=== PATIENT | female | born 1990 | race Caucasian/White ===

== ENCOUNTER 2017-02-05 02:07 | Emergency (ER) | payer MEDICAID ==
[2017-02-05 02:14] VITALS: BP 140/94
--- NOTE | 2017-02-05 02:33 | EDM.PDOC ---
ED HPI GENERAL MEDICAL PROBLEM - General Chief Complaint: Chest Pain Stated Complaint: CHEST PAIN Time Seen by Provider: 02/05/17 02:21 Source of Information: Reports: Patient History Limitations: Reports: No Limitations - History of Present Illness INITIAL COMMENTS - FREE TEXT/NARRATIVE: The patient presents with mid chest pain that comes and goes for the past few days to a week. It is a sharp pain. It is made worse with exertion and deep breathing at times. She has no fever or chills. She does have a cough. She has shortness of breath at times with it. She does smoke and she did use meth a few days ago. She has no vomiting but she does have some nausea with lack of appetite. She was recently released from custodial. Onset: Gradual Duration: Week(s): (1) Location: Reports: Chest Quality: Reports: Sharp Severity: Moderate Improves with: Reports: Rest Worsens with: Reports: Breathing, Movement Associated Symptoms: Reports: Chest Pain, Cough, Nausea/Vomiting, Shortness of Breath. Denies: Fever/Chills, Headaches Middle Chest Pain Score (Numeric/FACES): 5 - Related Data Allergies Allergy/AdvReac Type Severity Reaction Status Date / Time No Known Allergies Allergy Verified 02/05/17 02:14 Home Meds: Home Meds Multivitamin [Multivitamins] 1 tab PO DAILY 02/05/17 [History] Past Medical History - Past Health History Medical/Surgical History: Denies Medical/Surgical History - Past Surgical History HEENT Surgical History: Reports: Other (See Below) Other HEENT Surgeries/Procedures: wisdom teeth removal Social & Family History - Tobacco Use Smoking Status *Q: Current Every Day Smoker Years of Tobacco use: 7 Packs/Tins Daily: 0.2 - Caffeine Use Caffeine Use: Reports: None - Alcohol Use Days Per Week of Alcohol Use: 7 Number of Drinks Per Day: 2 Total Drinks Per Week: 14 - Recreational Drug Use Recreational Drug Use: Yes Drug Use in Last 12 Months: Yes Recreational Drug Type: Reports: Marijuana/Hashish, Methamphetamine Recreational Drug Use Frequency: Weekly Recreational Drug Last Use: 3 days ED ROS GENERAL - Review of Systems Review Of Systems: See Below Constitutional: Reports: No Symptoms HEENT: Reports: No Symptoms Respiratory: Reports: Shortness of Breath, Cough Cardiovascular: Reports: Chest Pain Endocrine: Reports: No Symptoms GI/Abdominal: Reports: No Symptoms : Reports: No Symptoms Musculoskeletal: Reports: No Symptoms ED EXAM, GENERAL - Physical Exam Exam: See Below Exam Limited By: No Limitations General Appearance: Alert, No Apparent Distress Ears: Normal External Exam Nose: Normal Inspection Head: Atraumatic, Normocephalic Neck: Normal Inspection Respiratory/Chest: No Respiratory Distress, Lungs Clear, Normal Breath Sounds Cardiovascular: Regular Rate, Rhythm, No Edema, No Murmur GI/Abdominal: Soft, Non-Tender, No Organomegaly, No Mass Back Exam: Normal Inspection Extremities: Normal Inspection Neurological: Alert, Oriented, No Motor/Sensory Deficits EKG INTERPRETATION EKG Date: 02/05/17 Time: 02:17 Rhythm: Other (sinus tachycardia) Rate (Beats/Min): 100 [place]ella: Normal P-Wave: Present QRS: Normal ST-T: Normal QT: Normal Course - Vital Signs Last Recorded V/S: Last Vital Signs Temp 98 F 02/05/17 02:11 Pulse 100 02/05/17 02:11 Resp 16 02/05/17 02:11 BP 140/94 H 02/05/17 02:11 Pulse Ox 100 02/05/17 02:11 - Orders/Labs/Meds Orders: Active Orders 24 hr Category Date Time Status Cardiac Monitoring [RC] . DIRECTED Care 02/05/17 02:27 Active EKG 12 Lead [EKG Documentation Completion] [RC] STAT Care 02/05/17 02:21 Active Chest 2V [CR] Stat Exams 02/05/17 02:27 Taken Labs: Laboratory Tests 02/05/17 02/05/17 02/05/17 Range/Units 02:38 02:38 02:38 WBC 5.67 (3.98-10.04) K/mm3 RBC 4.40 (3.98-5.22) M/mm3 Hgb 13.4 (11.2-15.7) gm/L Hct 38.9 (34.1-44.9) % MCV 88.4 (79.4-94.8) fl MCH 30.5 (25.6-32.2) pg MCHC 34.4 (32.2-35.5) g/dl RDW Std Deviation 41.6 (36.4-46.3) fL Plt Count 236 (182-369) K/mm3 MPV 10.5 (9.4-12.3) fl Neut % (Auto) 63.3 (34.0-71.1) % Lymph % (Auto) 26.8 (19.3-51.7) % [place] % (Auto) 9.0 (4.7-12.5) % Eos % (Auto) 0.7 (0.7-5.8) Baso % (Auto) 0.2 (0.1-1.2) % Neut # (Auto) 3.59 (1.56-6.13) K/mm3 Lymph # (Auto) 1.52 (1.18-3.74) K/mm3 [place] # (Auto) 0.51 H (0.24-0.36) K/mm3 Eos # (Auto) 0.04 (0.04-0.36) K/mm3 Baso # (Auto) 0.01 (0.01-0.08) K/mm3 D-Dimer, Quantitative 0.25 (0.19-0.59) mg/L Sodium 139 (136-145) mEq/L Potassium 3.2 L (3.5-5.1) mEq/L Chloride 100 (98-107) mEq/L Carbon Dioxide 27 (21-32) mEq/L Anion Gap 15.2 H (5-15) BUN 8 (7-18) mg/dL Creatinine 0.9 (0.55-1.02) mg/dL Est Cr Clr Drug Dosing 74.92 mL/min Estimated GFR (MDRD) > 60 (>60) mL/min BUN/Creatinine Ratio 8.9 L (14-18) Glucose 105 (74-106) mg/dL Calcium 9.3 (8.5-10.1) mg/dL Total Bilirubin 0.6 (0.2-1.0) mg/dL AST 30 (15-37) U/L ALT 29 (14-59) U/L Alkaline Phosphatase 71 (46-116) U/L Troponin I < 0.017 (0.00-0.056) ng/mL Total Protein 7.2 (6.4-8.2) g/dl Albumin 4.3 (3.4-5.0) g/dl Globulin 2.9 gm/dL Albumin/Globulin Ratio 1.5 (1-2) - Re-Assessments/Exams Free Text/Narrative Re-Assessment/Exam: 02/05/17 02:33 I ordered an EKG, CXR and labs. 02/05/17 03:26 Her EKG shows a NSR with no acute changes. Her CXR is negative for pneumonia or pneumthorax. Her CBC and CMP look good. Her troponin and D-dimer were negative. She appears to have pleurisy possibly from smoking cigarettes or the meth she did a few days ago. Departure - Departure Time of Disposition: 03:30 Disposition: Home, Self-Care 01 Condition: Good Clinical Impression: Pleurisy Referrals: Sulma Sanchez PA-C [Physician Application Systems Architect] - 1 Week Forms: ED Department Discharge Additional Instructions: Stop smoking and stop doing methamphetamines. Both of these are causing your chest pain. Take motrin or aleve for the pain. Follow up with Sulma Sanchez in 2 weeks if you are not better. - My Orders Last 24 Hours: My Active Orders 02/05/17 02:21 EKG 12 Lead [EKG Documentation Completion] [RC] STAT 02/05/17 02:27 Cardiac Monitoring [RC] . DIRECTED Chest 2V [CR] Stat - Assessment/Plan Last 24 Hours: My Active Orders 02/05/17 02:21 EKG 12 Lead [EKG Documentation Completion] [RC] STAT 02/05/17 02:27 Cardiac Monitoring [RC] . DIRECTED Chest 2V [CR] Stat
--- NOTE | 2017-02-05 17:54 | CR ---
Chest: Two views of the chest were obtained. Comparison: Previous chest x-ray of 09/04/10. Heart size and mediastinum are within normal limits. Lungs are clear with no acute infiltrates. Bony structures are within normal limits. Impression: 1. Nothing acute is appreciated on two-view chest x-ray. Diagnostic code #1
== END 2017-02-05 03:37 | disposition home or self-care (01) ==
LOC: JD.ED 02:07
DX: R09.1 Pleurisy (principal); F17.210 Nicotine dependence, cigarettes, uncomplicated
CPT/HCPCS: 36415; 71020; 71020-26; 80053; 84484; 85025; 85379; 93005; 99284; 99284-25

== ENCOUNTER 2018-09-27 08:15 | Emergency (ER) | payer SELFPAY ==
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
[2018-09-27] MEDS ORDERED: LORazepam 1 MG Tab PO ONE (09:18)
[2018-09-27 09:34] LABS: ACETAMINOPHEN 0 ug/mL (10-30)
[2018-09-28 00:01] VITALS: BP 96/63
== END 2018-09-28 09:50 ==
LOC: JD.ED 08:15
DX: F15.20 Other stimulant dependence, uncomplicated (principal); F17.210 Nicotine dependence, cigarettes, uncomplicated
CPT/HCPCS: 36415; 80053; 80306; 81025; 84443; 85007; 85027; 93005; 99285; A9270; G0480; 93010

== ENCOUNTER 2020-10-22 03:42 | Emergency (ER) | payer SELFPAY ==
[2020-10-22] MEDS ORDERED: Adenosine 12 MG/4 ML SDV ONE (03:50)
[2020-10-22] MEDS ORDERED: Adenosine 6 MG/2 ML SDV ONE (03:50)
[2020-10-22] MEDS ORDERED: Sodium Chloride 0.9% 10 ML Syringe FLUSH PRN (03:56)
[2020-10-22] MEDS ORDERED: Ondansetron 4 MG/2 ML SDV IVPUSH ONE (03:59)
[2020-10-22 04:00] VITALS: BP 103/85; PULSE 192
[2020-10-22] MEDS ORDERED: Lactated Ringers 1,000 ML IV SCH (04:00)
[2020-10-22] MEDS ORDERED: Adenosine 6 MG/2 ML SDV IVPUSH ONE ×2 (04:01)
[2020-10-22] MEDS ORDERED: Adenosine 12 MG/4 ML SDV IVPUSH ONE (04:03)
--- NOTE | 2020-10-22 04:06 | EDM.PDOCBH ---
ED HPI GENERAL MEDICAL PROBLEM - General Chief Complaint: Drug or Alcohol Abuse Stated Complaint: [facility] Time Seen by Provider: 10/22/20 03:51 Source of Information: Reports: Patient History Limitations: Reports: No Limitations - History of Present Illness INITIAL COMMENTS - FREE TEXT/NARRATIVE: The patient presents with palpitations. She said she took to many caffeine pills last night. She took them at 10pm to help stay awake to study. She is in courses in [place]. She noticed her heart was racing. She denies taking anything else. She has no fever, chills, cough, or chest pain. She has some shortness of breath. She has nausea but no vomiting. She says this has not happened before. She denies any past medical history. Onset: Gradual Duration: Hour(s): Severity: Moderate Improves with: Reports: None Worsens with: Reports: None Associated Symptoms: Reports: Nausea/Vomiting, Shortness of Breath. Denies: Chest Pain, Cough, Fever/Chills, Headaches Abdomen Pain Score (Numeric/FACES): 10 - Related Data Allergies Allergy/AdvReac Type Severity Reaction Status Date / Time No Known Allergies Allergy Verified 10/22/20 03:43 Home Meds: Home Meds Buprenorphine HCl/Naloxone HCl [Suboxone 4 mg-1 mg Sl Film] 1 each SL TID 09/27/18 [History] Potassium Chloride 20 meq PO DAILY #30 tablet.er 10/22/20 [Rx] Past Medical History - Past Health History Medical/Surgical History: Denies Medical/Surgical History Cardiovascular History: Reports: None Respiratory History: Reports: None Gastrointestinal History: Reports: None Genitourinary History: Reports: None 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 Apparently her partner both been diagnosed with 60 transmitted disorders several times in the past and treated. "ping pong ball" effect still seems to be occurring Musculoskeletal History: Reports: None Neurological History: Reports: None Psychiatric History: Reports: Addiction (alcohol, methamphetamine, heroin), Depression (untreated) Immunologic History: Reports: None Oncologic (Cancer) History: Reports: None Dermatologic History: Reports: None - Infectious Disease History Infectious Disease History: Reports: None - Past Surgical History HEENT Surgical History: Reports: Oral Surgery (wisdom teeth extraction) Social & Family History - Family History Family Medical History: No Pertinent Family History - Caffeine Use Caffeine Use: Reports: Coffee - Living Situation & Occupation Living situation: Reports: Single, Other (Homeless) Occupation: Unemployed ED ROS GENERAL - Review of Systems Review Of Systems: See Below Constitutional: Reports: No Symptoms HEENT: Reports: No Symptoms Respiratory: Reports: Shortness of Breath. Denies: Cough Cardiovascular: Reports: Palpitations. Denies: Chest Pain Endocrine: Reports: No Symptoms GI/Abdominal: Reports: Nausea. Denies: Abdominal Pain, Vomiting : Reports: No Symptoms Musculoskeletal: Reports: No Symptoms Skin: Reports: No Symptoms ED EXAM, BEHAVIORAL HEALTH - Physical Exam Exam: See Below Exam Limited By: No Limitations General Appearance: Alert, No Apparent Distress Ears: Normal External Exam Nose: Normal Inspection Head: Atraumatic, Normocephalic Neck: Normal Inspection Respiratory/Chest: No Respiratory Distress, Lungs Clear, Normal Breath Sounds Cardiovascular: No Edema, No Murmur, Tachycardia GI/Abdominal: Soft, Non-Tender, No Organomegaly, No Mass Back Exam: Normal Inspection Extremities: Normal Inspection Neurological: Alert, No Motor/Sensory Deficits, Oriented x 3 #1 Interpretation EKG Date: 10/22/20 Time: 03:46 Rhythm: Other (SVT) Rate (Beats/Min): 187 [place]: Normal P-Wave: Present QRS: Normal ST-T: Normal QT: Normal COURSE, BEHAVIORAL HEALTH COMP - Course Vital Signs: Last Vital Signs Temp 97.6 F 10/22/20 03:43 Pulse 192 H 10/22/20 03:43 Resp 18 10/22/20 03:43 BP 103/85 10/22/20 03:43 Pulse Ox 98 10/22/20 03:43 Orders, Labs, Meds: Active Orders 24 hr Category Date Time Status Cardiac Monitoring [RC] . DIRECTED Care 10/22/20 03:51 Active EKG Documentation Completion [RC] STAT Care 10/22/20 03:58 Active Peripheral IV Care [RC] . DIRECTED Care 10/22/20 03:58 Active Lactated Ringers [Ringers, Lactated] 1,000 ml Med 10/22/20 04:00 Active IV .BOLUS Sodium Chloride 0.9% [Saline Flush] Med 10/22/20 03:56 Active 10 ml FLUSH ASDIRECTED PRN Peripheral IV Insertion Adult [OM.PC] Stat Oth 10/22/20 03:56 Ordered Medication Orders Lactated Ringer's (Ringers, Lactated) 1,000 mls @ 500 mls/hr IV .BOLUS MARJORIE Last Admin: 10/22/20 04:03 Dose: 500 mls/hr Documented by: KYLAH Sodium Chloride (Sodium Chloride 0.9% 10 Ml Syringe) 10 ml FLUSH ASDIRECTED PRN PRN Reason: Keep Vein Open Last Admin: 10/22/20 04:04 Dose: 10 ml Documented by: KYLAH Laboratory Tests 10/22/20 10/22/20 10/22/20 Range/Units 03:49 03:49 05:02 WBC 12.16 H (3.98-10.04) K/mm3 RBC 4.87 (3.98-5.22) M/mm3 Hgb 14.5 (11.2-15.7) gm/dl Hct 43.0 (34.1-44.9) % MCV 88.3 D (79.4-94.8) fl MCH 29.8 (25.6-32.2) pg MCHC 33.7 (32.2-35.5) g/dl RDW Std Deviation 44.5 (36.4-46.3) fL Plt Count 273 (182-369) K/mm3 MPV 10.5 (9.4-12.3) fl Neut % (Auto) 87.4 H (34.0-71.1) % Lymph % (Auto) 8.8 L (19.3-51.7) % [place] % (Auto) 3.5 L (4.7-12.5) % Eos % (Auto) 0 L (0.7-5.8) Baso % (Auto) 0.1 (0.1-1.2) % Neut # (Auto) 10.63 H (1.56-6.13) K/mm3 Lymph # (Auto) 1.07 L (1.18-3.74) K/mm3 [place] # (Auto) 0.43 H (0.24-0.36) K/mm3 Eos # (Auto) 0.00 L (0.04-0.36) K/mm3 Baso # (Auto) 0.01 (0.01-0.08) K/mm3 Manual Slide Review Abnormal smear Sodium 149 H D (136-145) mEq/L Potassium 2.8 L (3.5-5.1) mEq/L Chloride 106 (98-107) mEq/L Carbon Dioxide 23 (21-32) mEq/L Anion Gap 22.8 H (5-15) BUN 10 (7-18) mg/dL Creatinine 1.2 H (0.55-1.02) mg/dL Est Cr Clr Drug Dosing 47.61 mL/min Estimated GFR (MDRD) 53 (>60) mL/min BUN/Creatinine Ratio 8.3 L (14-18) Glucose 191 H (70-99) mg/dL Calcium 9.3 (8.5-10.1) mg/dL Total Bilirubin 0.5 (0.2-1.0) mg/dL AST 30 (15-37) U/L ALT 62 H (14-59) U/L Alkaline Phosphatase 92 (46-116) U/L Troponin I < 0.017 (0.00-0.056) ng/mL Total Protein 7.9 (6.4-8.2) g/dl Albumin 4.6 (3.4-5.0) g/dl Globulin 3.3 gm/dL Albumin/Globulin Ratio 1.4 (1-2) TSH 3rd Generation 0.946 (0.358-3.74) uIU/mL Urine Opiates Screen Negative (YBHJTA=111) Ur Buprenorphine Scrn Presumptive positive (CUTOFF=10) Ur Oxycodone Screen Negative (NWG1UL=860) Urine Methadone Screen Presumptive positive H (AMYMPW=673) Ur Propoxyphene Screen Negative (JAIUIO=207) Ur Barbiturates Screen Negative (JEBXFL=484) Ur Tricyclics Screen Negative (DHIPEV=072) Ur Phencyclidine Scrn Negative (CUTOFF=25) Ur Amphetamine Screen Negative (SKYOFY=472) U Methamphetamines Scrn Negative (EVUSGY=653) U Benzodiazepines Scrn Negative (SRQPDL=048) U Cocaine Metab Screen Negative (TXQFIU=694) U Marijuana (THC) Screen Negative (CUTOFF=50) Ethyl Alcohol 0.00 (0.00) gm% Medications Generic Name Dose Route Start Last Admin Trade Name Freq PRN Reason Stop Dose Admin Lactated Ringer's 1,000 mls @ 500 mls/hr 10/22/20 04:00 10/22/20 04:03 Ringers, Lactated IV 500 mls/hr .BOLUS MARJORIE Administration Sodium Chloride 10 ml 10/22/20 03:56 10/22/20 04:04 Sodium Chloride 0.9% 10 Ml Syringe FLUSH 10 ml ASDIRECTED PRN Administration Keep Vein Open Discontinued Medications Generic Name Dose Route Start Last Admin Trade Name Freq PRN Reason Stop Dose Admin Adenosine Confirm 10/22/20 03:50 10/22/20 04:01 Adenosine 6 Mg/2 Ml Sdv Administered 10/22/20 03:51 Not Given Dose 6 mg .ROUTE .STK-MED ONE Adenosine Confirm 10/22/20 03:50 10/22/20 04:01 Adenosine 12 Mg/4 Ml Sdv Administered 10/22/20 03:51 Not Given Dose 12 mg .ROUTE .STK-MED ONE Adenosine 6 mg 10/22/20 04:01 10/22/20 04:02 Adenosine 6 Mg/2 Ml Sdv IVPUSH 10/22/20 04:02 6 mg NOW ONE Administration Adenosine 12 mg 10/22/20 04:01 Adenosine 6 Mg/2 Ml Sdv IVPUSH 10/22/20 04:02 NOW ONE Adenosine 12 mg 10/22/20 04:03 10/22/20 04:04 Adenosine 12 Mg/4 Ml Sdv IVPUSH 10/22/20 04:04 12 mg NOW ONE Administration Al Hydroxide/Mg Hydroxide 30 0 ml 10/22/20 04:10 10/22/20 04:14 ml/ Lidocaine HCl 15 ml PO 10/22/20 04:11 45 ml ONETIME ONE Administration Famotidine 20 mg 10/22/20 04:41 10/22/20 04:45 Famotidine 20 Mg/2 Ml Sdv IVPUSH 10/22/20 04:42 20 mg ONETIME ONE Administration Ketorolac Tromethamine 30 mg 10/22/20 04:41 10/22/20 04:45 Ketorolac 30 Mg/Ml Sdv IVPUSH 10/22/20 04:42 30 mg ONETIME ONE Administration Ondansetron HCl 4 mg 10/22/20 03:59 10/22/20 04:03 Ondansetron 4 Mg/2 Ml Sdv IVPUSH 10/22/20 04:00 4 mg ONETIME ONE Administration Re-Assessment/Re-Exam: I ordered an IV LR 1L bolus, EKG, and labs. She is in an SVT in the 180s. I ordered adenisine 6mg IV. That had no effect. I then ordered adenisine 12mg IV. that did slow her down to the 120s. I will check labs and continue with the fluids. Her WBC was elevated at 12.16. Her Na was elevated at 149. Her K was low at 2.8. Her anion gap is elevated at 22.8. Her creatinine is elevated at 1.2. Her glucose is elevated at 191. Her ALT is elevated at 62. Her troponin is negative. Her TSH is normal. Her ETOH is 0. She developed some heart burn so I ordered a GI cocktail. She still had pain so I ordered toradol 30mg IV and pepcid 20mg IV. Her UDS was positive for methadone which she is on. I will get her on some oral potassium and have her avoid stimulants. Departure - Departure Time of Disposition: 05:40 Disposition: Home, Self-Care 01 Condition: Good Clinical Impression: SVT (supraventricular tachycardia), Hypokalemia Caffeine overdose Qualifiers: Encounter type: initial encounter Injury intent: accidental or unintentional Qualified Code(s): T43.611A - Poisoning by caffeine, accidental (unintentional), initial encounter - Discharge Information *PRESCRIPTION DRUG MONITORING PROGRAM REVIEWED*: Not Applicable *COPY OF PRESCRIPTION DRUG MONITORING REPORT IN PATIENT CYNDI: Not Applicable Prescriptions: Potassium Chloride 20 meq PO DAILY #30 tablet.er Referrals: PCP,None [Primary Care Provider] - Joya Schulte, GLOBAL CLIMATE CHANGE ANALYST [Nurse Practitioner] - 1 Week Forms: ED Department Discharge Additional Instructions: Drink plenty of water, power aldo or gator aldo. Take the potassium daily. Avoid stimulants such as caffeine and nicotine. Follow up with your provider. Please return if you are worse. Sepsis Event Note (ED) - Focused Exam Vital Signs: Vital Signs Temp Pulse Resp BP Pulse Ox 10/22/20 03:43 97.6 F 192 H 18 103/85 98 - My Orders Last 24 Hours: My Active Orders 10/22/20 03:51 Cardiac Monitoring [RC] . DIRECTED 10/22/20 03:56 Sodium Chloride 0.9% [Saline Flush] 10 ml FLUSH ASDIRECTED PRN Peripheral IV Insertion Adult [OM.PC] Stat 10/22/20 03:58 EKG Documentation Completion [RC] STAT Peripheral IV Care [RC] . DIRECTED 10/22/20 04:00 Lactated Ringers [Ringers, Lactated] 1,000 ml IV .BOLUS - Assessment/Plan Last 24 Hours: My Active Orders 10/22/20 03:51 Cardiac Monitoring [RC] . DIRECTED 10/22/20 03:56 Sodium Chloride 0.9% [Saline Flush] 10 ml FLUSH ASDIRECTED PRN Peripheral IV Insertion Adult [OM.PC] Stat 10/22/20 03:58 EKG Documentation Completion [RC] STAT Peripheral IV Care [RC] . DIRECTED 10/22/20 04:00 Lactated Ringers [Ringers, Lactated] 1,000 ml IV .BOLUS
[2020-10-22] MEDS ORDERED: Alum Hydrox/Mag Hydrox/Simeth 30 ML, Lidocaine 2% 15 ML PO ONE ×2 (04:10)
[2020-10-22] MEDS ORDERED: Ketorolac 30 MG/ML SDV IVPUSH ONE (04:41)
[2020-10-22] MEDS ORDERED: Famotidine 20 MG/2 ML SDV IVPUSH ONE (04:41)
== END 2020-10-22 05:45 | disposition home or self-care (01) ==
LOC: JD.ED 03:42
DX: T43.611A Poisoning by caffeine, accidental (unintentional), initial encounter (principal); I47.1 Supraventricular tachycardia; E87.6 Hypokalemia
CPT/HCPCS: 36415; 80053; 80306; 80307; 84443; 84484; 85025; 96374; 96375; 99285; A9270; J0153; J1885; J2405; J3490; J7120; 93010; 99284

== ENCOUNTER 2020-10-24 18:19 | Emergency (ER) | payer SELFPAY ==
[2020-10-24 18:29] VITALS: BP 128/95; PULSE 126
[2020-10-24] MEDS ORDERED: Sodium Chloride 0.9% 10 ML Syringe FLUSH PRN (18:29)
[2020-10-24] MEDS ORDERED: LORazepam 2 MG/ML SDV IVPUSH ONE (18:29)
[2020-10-24] MEDS ORDERED: Sodium Chloride 0.9% 1,000 ML IV ONE (18:34)
--- NOTE | 2020-10-24 18:48 | EDM.PDOCBH ---
ED HPI GENERAL MEDICAL PROBLEM - General Chief Complaint: Drug or Alcohol Abuse Stated Complaint: [facility] Time Seen by Provider: 10/24/20 18:30 Source of Information: Reports: Patient, Old Records, RN Notes Reviewed History Limitations: Reports: No Limitations - History of Present Illness INITIAL COMMENTS - FREE TEXT/NARRATIVE: Patient is a 30-year-old female who presents to the ER by [facility] for the evaluation of her methamphetamine ingestion. Patient notes that about 2 hours ago, she ingested and snorted about 1 g of methamphetamines. She notes that she was kind of tapering up her dose, but then the last little bit she took put her over the edge. She is having chest pain/tightness, lightheadedness, lethargy, she is finding it hard to get the words out that she wants, and also a racing heart rate. She does state that she has been using methamphetamines for the past 3 to 4 days. She is alert and oriented to place time and date. She is currently on Suboxone as well. She denies any other medical issues. She has no regular provider. Patient states she cannot really tell me exactly what is going on exactly except she just feels really "bad". 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 (See Below) Other PIERCING SPECIALIST History: vaginitis Psychiatric History: Reports: Addiction, Depression - Past Surgical History HEENT Surgical History: Reports: Oral Surgery Other HEENT Surgeries/Procedures: wisdom teeth removal Social & Family History - Family History Family Medical History: No Pertinent Family History - Caffeine Use Caffeine Use: Reports: Coffee - Recreational Drug Use Recreational Drug Use: Yes Drug Use in Last 12 Months: Yes Recreational Drug Type: Reports: Methamphetamine, Other (see below) (states she was taking hydroxycut as well a few days ago, but has stopped this) Recreational Drug Last Use: pt has been using methamphetamines off/on, currentlly been using Recreational Drug Route: Reports: Inhaled, Oral - Living Situation & Occupation Living situation: Reports: Single, Other (Homeless) Occupation: Unemployed ED ROS GENERAL - Review of Systems Review Of Systems: Comprehensive ROS is negative, except as noted in HPI. ED EXAM, BEHAVIORAL HEALTH - Physical Exam Exam: See Below Exam Limited By: No Limitations General Appearance: Alert, WD/WN, No Apparent Distress, Anxious (extreme generalized anxiety) Eye Exam: Bilateral Eye: EOMI, PERRL Respiratory/Chest: No Respiratory Distress, Lungs Clear, Normal Breath Sounds, No Accessory Muscle Use, Chest Non-Tender Cardiovascular: Normal Peripheral Pulses, Regular Rate, Rhythm, No Edema Extremities: Normal Inspection, Normal Capillary Refill Neurological: Alert, No Motor/Sensory Deficits, Oriented x 3 Psychiatric: Restless (pt has generalized anxiety d/t meth ingestion, movements in room are twitchy) Skin Exam: Warm, Dry, Intact, Normal color, No rash #1 Interpretation EKG Date: 10/24/20 Time: 19:04 Rhythm: NSR (sinus tachy) Rate (Beats/Min): 100 [place]: Normal P-Wave: Present QRS: Normal ST-T: Normal QT: Normal Comparison: NA - No Prior EKG EKG Interpretation Comments: No obvious ischemia or acute ST changes noted, reviewed by myself and Dr. Restrepo. COURSE, BEHAVIORAL HEALTH COMP - Course Vital Signs: Last Vital Signs Temp 98 F 10/24/20 18:25 Pulse 126 H 10/24/20 18:25 Resp 18 10/24/20 18:25 BP 128/95 H 10/24/20 18:25 Pulse Ox 97 10/24/20 18:25 Orders, Labs, Meds: Active Orders 24 hr Category Date Time Status EKG Documentation Completion [RC] STAT Care 10/24/20 18:29 Ordered Peripheral IV Care [RC] . DIRECTED Care 10/24/20 18:29 Ordered Chest 1V Frontal [CR] Stat Exams 10/24/20 18:29 Ordered DRUG SCREEN, URINE [URCHEM] Stat Lab 10/24/20 18:38 Ordered Sodium Chloride 0.9% [Saline Flush] Med 10/24/20 18:29 Ordered 10 ml FLUSH ASDIRECTED PRN Peripheral IV Insertion Adult [OM.PC] Stat Oth 10/24/20 18:29 Ordered Medication Orders Sodium Chloride (Sodium Chloride 0.9% 10 Ml Syringe) 10 ml FLUSH ASDIRECTED PRN PRN Reason: Keep Vein Open Last Admin: 10/24/20 18:37 Dose: 10 ml Documented by: SIXTO Laboratory Tests 10/24/20 10/24/20 10/24/20 Range/Units 18:30 18:30 18:30 WBC 8.23 (3.98-10.04) K/mm3 RBC 4.55 (3.98-5.22) M/mm3 Hgb 13.7 (11.2-15.7) gm/dl Hct 40.2 (34.1-44.9) % MCV 88.4 (79.4-94.8) fl MCH 30.1 (25.6-32.2) pg MCHC 34.1 (32.2-35.5) g/dl RDW Std Deviation 44.3 (36.4-46.3) fL Plt Count 285 (182-369) K/mm3 MPV 9.6 (9.4-12.3) fl Neut % (Auto) 72.6 H (34.0-71.1) % Lymph % (Auto) 19.1 L (19.3-51.7) % [place] % (Auto) 7.8 (4.7-12.5) % Eos % (Auto) 0.2 L (0.7-5.8) Baso % (Auto) 0.2 (0.1-1.2) % Neut # (Auto) 5.97 (1.56-6.13) K/mm3 Lymph # (Auto) 1.57 (1.18-3.74) K/mm3 [place] # (Auto) 0.64 H (0.24-0.36) K/mm3 Eos # (Auto) 0.02 L (0.04-0.36) K/mm3 Baso # (Auto) 0.02 (0.01-0.08) K/mm3 PT 11.9 (9.7-12.0) SECONDS INR 1.11 APTT 27.3 (21.7-31.4) SECONDS Sodium 137 D (136-145) mEq/L Potassium 3.3 L (3.5-5.1) mEq/L Chloride 98 (98-107) mEq/L Carbon Dioxide 25 (21-32) mEq/L Anion Gap 17.3 H (5-15) BUN 16 (7-18) mg/dL Creatinine 1.0 (0.55-1.02) mg/dL Est Cr Clr Drug Dosing 57.73 mL/min Estimated GFR (MDRD) > 60 (>60) mL/min BUN/Creatinine Ratio 16.0 (14-18) Glucose 75 (70-99) mg/dL Calcium 8.6 (8.5-10.1) mg/dL Magnesium 1.8 (1.8-2.4) mg/dL Total Bilirubin 0.7 (0.2-1.0) mg/dL AST 30 (15-37) U/L ALT 42 (14-59) U/L Alkaline Phosphatase 79 (46-116) U/L Troponin I < 0.017 (0.00-0.056) ng/mL NT-Pro-B Natriuret Pep (0-125) pg/mL Total Protein 7.6 (6.4-8.2) g/dl Albumin 4.5 (3.4-5.0) g/dl Globulin 3.1 gm/dL Albumin/Globulin Ratio 1.5 (1-2) 10/24/20 Range/Units 18:30 WBC (3.98-10.04) K/mm3 RBC (3.98-5.22) M/mm3 Hgb (11.2-15.7) gm/dl Hct (34.1-44.9) % MCV (79.4-94.8) fl MCH (25.6-32.2) pg MCHC (32.2-35.5) g/dl RDW Std Deviation (36.4-46.3) fL Plt Count (182-369) K/mm3 MPV (9.4-12.3) fl Neut % (Auto) (34.0-71.1) % Lymph % (Auto) (19.3-51.7) % [place] % (Auto) (4.7-12.5) % Eos % (Auto) (0.7-5.8) Baso % (Auto) (0.1-1.2) % Neut # (Auto) (1.56-6.13) K/mm3 Lymph # (Auto) (1.18-3.74) K/mm3 [place] # (Auto) (0.24-0.36) K/mm3 Eos # (Auto) (0.04-0.36) K/mm3 Baso # (Auto) (0.01-0.08) K/mm3 PT (9.7-12.0) SECONDS INR APTT (21.7-31.4) SECONDS Sodium (136-145) mEq/L Potassium (3.5-5.1) mEq/L Chloride (98-107) mEq/L Carbon Dioxide (21-32) mEq/L Anion Gap (5-15) BUN (7-18) mg/dL Creatinine (0.55-1.02) mg/dL Est Cr Clr Drug Dosing mL/min Estimated GFR (MDRD) (>60) mL/min BUN/Creatinine Ratio (14-18) Glucose (70-99) mg/dL Calcium (8.5-10.1) mg/dL Magnesium (1.8-2.4) mg/dL Total Bilirubin (0.2-1.0) mg/dL AST (15-37) U/L ALT (14-59) U/L Alkaline Phosphatase (46-116) U/L Troponin I (0.00-0.056) ng/mL NT-Pro-B Natriuret Pep 140 H (0-125) pg/mL Total Protein (6.4-8.2) g/dl Albumin (3.4-5.0) g/dl Globulin gm/dL Albumin/Globulin Ratio (1-2) Medications Generic Name Dose Route Start Last Admin Trade Name Freq PRN Reason Stop Dose Admin Sodium Chloride 10 ml 10/24/20 18:29 10/24/20 18:37 Sodium Chloride 0.9% 10 Ml Syringe FLUSH 10 ml ASDIRECTED PRN Administration Keep Vein Open Discontinued Medications Generic Name Dose Route Start Last Admin Trade Name Freq PRN Reason Stop Dose Admin Sodium Chloride 1,000 mls @ 999 mls/hr 10/24/20 18:34 10/24/20 18:37 Normal Saline IV 10/24/20 19:34 999 mls/hr ONETIME ONE Administration Lorazepam 1 mg 10/24/20 18:29 10/24/20 18:33 Lorazepam 2 Mg/Ml Sdv IVPUSH 10/24/20 18:30 1 mg ONETIME ONE Administration Discharge vs Psych Eval/Treatment:: 10/24/20 18:49 Patient presents to the ER for her meth ingestion, we will go ahead get IV started, give her some IV fluids, have given her 1 mg IV Ativan, take some baseline labs and EKG for further evaluation. 10/24/20 19:49 Patient's labs have resulted, and are essentially unremarkable. Patient notes that her chest discomfort is gone, but she still feels pretty high. At this point she is not wanting more Ativan. I did discuss possible placement into [facility] for methamphetamine addiction, patient is not wanting this at this time and notes that she goes to the Suboxone clinic and counseling in [facility], she states that she has an appointment on Sunday and feels this would be okay enough to attend. At this time we will give the patient a liter of fluids, and this should hopefully make her feel even better try to flush the methamphetamine out of her system a little sooner. Plan is to hopefully send the patient home on her own recognizance. Departure - Departure Time of Disposition: 19:52 Disposition: Home, Self-Care 01 Condition: Good Clinical Impression: Methamphetamine intoxication, Methamphetamine abuse - Discharge Information *PRESCRIPTION DRUG MONITORING PROGRAM REVIEWED*: No *COPY OF PRESCRIPTION DRUG MONITORING REPORT IN PATIENT CYNDI: No Instructions: Finding Treatment for Addiction Forms: ED Department Discharge Additional Instructions: You were evaluated in the ER today for your methamphetamine use. You were given some IV fluids, IV medications, had some labs drawn along with a EKG and a chest x-ray and everything was within normal limits. The IV fluids and IV medications seem to help counter the effects of the methamphetamine that you ingested. Recommend you go home, try your best to stay away from methamphetamine, try to increase your oral hydration, get a few good meals, you should be feeling better soon. Please follow-up with your counselor on Sunday for ongoing management. Please return to the ER at any time if symptoms change or worsen. Sepsis Event Note (ED) - Evaluation Sepsis Screening Result: No Definite Risk - Focused Exam Vital Signs: Vital Signs Temp Pulse Resp BP Pulse Ox 10/24/20 18:25 98 F 126 H 18 128/95 H 97 - My Orders Last 24 Hours: My Active Orders 10/24/20 18:29 EKG Documentation Completion [RC] STAT Peripheral IV Care [RC] . DIRECTED Chest 1V Frontal [CR] Stat Sodium Chloride 0.9% [Saline Flush] 10 ml FLUSH ASDIRECTED PRN Peripheral IV Insertion Adult [OM.PC] Stat 10/24/20 18:38 DRUG SCREEN, URINE [URCHEM] Stat - Assessment/Plan Last 24 Hours: My Active Orders 10/24/20 18:29 EKG Documentation Completion [RC] STAT Peripheral IV Care [RC] . DIRECTED Chest 1V Frontal [CR] Stat Sodium Chloride 0.9% [Saline Flush] 10 ml FLUSH ASDIRECTED PRN Peripheral IV Insertion Adult [OM.PC] Stat 10/24/20 18:38 DRUG SCREEN, URINE [URCHEM] Stat
--- NOTE | 2020-10-25 07:41 | CR ---
Chest: Portable view of the chest was obtained. Comparison: Prior chest x-ray of 02/08/17. Heart size and mediastinum are normal. Several nodules are seen within the left lung which are an interval change from prior exam. Findings most likely represent granulomatous disease. Lungs otherwise are clear. Bony structures are unremarkable. Impression: 1. Slight nodularity within the left chest which I believe represents granulomatous change. 2. Nothing acute is otherwise seen on portable chest x-ray. Diagnostic code #2
== END 2020-10-24 20:35 | disposition home or self-care (01) ==
LOC: JD.ED 18:19
DX: F15.129 Other stimulant abuse with intoxication, unspecified (principal)
CPT/HCPCS: 36415; 71045; 80053; 83735; 83880; 84484; 85025; 85610; 85730; 93005; 96374; 99285; J2060; J7030; 93010; 99284

== ENCOUNTER 2020-10-25 12:52 | Emergency (ER) | payer SELFPAY ==
[2020-10-25 13:04] VITALS: BP 136/86; PULSE 134
[2020-10-25] MEDS ORDERED: Sodium Chloride 0.9% 10 ML Syringe FLUSH PRN (13:16)
[2020-10-25] MEDS ORDERED: Sodium Chloride 0.9% 1,000 ML IV ONE (13:17)
--- NOTE | 2020-10-25 13:28 | EDM.PDOC ---
ED HPI GENERAL MEDICAL PROBLEM - General Chief Complaint: Chest Pain Stated Complaint: [facility] Time Seen by Provider: 10/25/20 12:54 Source of Information: Reports: Patient History Limitations: Reports: No Limitations, Other (ED vital signs reveal a temp of 97.3, pulse of 134, respiratory rate of 16, blood pressure 136/86, pulse ox 100% on room air.) - History of Present Illness INITIAL COMMENTS - FREE TEXT/NARRATIVE: 30-year-old female presents to the emergency department today with complaints of chest pain. Patient was seen in the emergency department 3 days ago with complaints of chest pain and tachycardia. At that time she had admitted to taking caffeine pills and she was found to be tachycardic in the 180s and was given Adenocard. She was sent home at that time. Patient then presented yesterday with complaints of chest pain. She has a history of methamphetamine abuse and has recently moved here from [place]. She takes Suboxone. She states she fell off the wan. At that time she was given IV fluids and a milligram of Ativan and discharged home. Patient again presented to the emergency department today with complaints of chest pain and palpitations. Apparently she tells me she took a bath salts yesterday. She states she took her regular prescribed Suboxone today and developed chest pain and palpitations once again. She states that she consumed the bath salts yesterday afternoon. She states that she crush them up and mix them in water and drink. She apparently is set up to receive treatment at outpatient [facility] clinic. She is supposed to meet with her counselor 2 days from now. Chest Pain Score (Numeric/FACES): 8 - Related Data Allergies Allergy/AdvReac Type Severity Reaction Status Date / Time No Known Allergies Allergy Verified 10/25/20 13:04 Home Meds: Home Meds Buprenorphine HCl/Naloxone HCl [Suboxone 4 mg-1 mg Sl Film] 1 each SL TID 09/27/18 [History] Potassium Chloride 20 meq PO DAILY #30 tablet.er 10/22/20 [Rx] Past Medical History - Past Health History Medical/Surgical History: Denies Medical/Surgical History Cardiovascular History: Reports: None Respiratory History: Reports: None Gastrointestinal History: Reports: None Genitourinary History: Reports: None INFANTRY SENIOR SERGEANT History: Reports: Other (See Below) Other INFANTRY SENIOR SERGEANT History: vaginitis Musculoskeletal History: Reports: None Neurological History: Reports: None Psychiatric History: Reports: Addiction, Depression Immunologic History: Reports: None Oncologic (Cancer) History: Reports: None Dermatologic History: Reports: None - Past Surgical History HEENT Surgical History: Reports: Oral Surgery Other HEENT Surgeries/Procedures: wisdom teeth removal Respiratory Surgical History: Reports: None GI Surgical History: Reports: None Female Surgical History: Reports: None Social & Family History - Family History Family Medical History: No Pertinent Family History - Tobacco Use Tobacco Use Status *Q: Current Every Day Tobacco User Years of Tobacco use: 15 Packs/Tins Daily: 1 - Caffeine Use Caffeine Use: Reports: None - Recreational Drug Use Recreational Drug Use: Yes Drug Use in Last 12 Months: Yes - Living Situation & Occupation Living situation: Reports: Single, Other (Homeless) Occupation: Unemployed ED ROS GENERAL - Review of Systems Review Of Systems: Comprehensive ROS is negative, except as noted in HPI. ED EXAM, GENERAL - Physical Exam Exam: See Below Exam Limited By: No Limitations General Appearance: Alert, WD/WN, Anxious Ears: Normal External Exam, Hearing Grossly Normal Nose: Normal Inspection Throat/Mouth: Normal Inspection, Normal Lips, Normal Voice, No Airway Compromise Head: Atraumatic Neck: Normal Inspection, Supple Respiratory/Chest: No Respiratory Distress, Lungs Clear, Normal Breath Sounds, No Accessory Muscle Use, Chest Non-Tender Cardiovascular: Normal Peripheral Pulses, No Edema, No Murmur, Tachycardia (Rate is in the 120s to 140s) Peripheral Pulses: 2+: Radial (L), Radial (R) GI/Abdominal: Normal Bowel Sounds, Soft, Non-Tender, No Distention (Female) Exam: Deferred Rectal (Female) Exam: Deferred Back Exam: Normal Inspection Extremities: Normal Inspection Neurological: Alert, Oriented, Normal Cognition Psychiatric: Anxious, Tearful Skin Exam: Warm, Dry, Intact, Normal Color, No Rash Lymphatic: No Adenopathy #1 Interpretation EKG Date: 10/25/20 Time: 12:55 Rhythm: NSR Rate (Beats/Min): 112 [place]: Normal P-Wave: Present QRS: Normal ST-T: Normal QT: Normal EKG Interpretation Comments: Per Dr. Gates interpretation: sinus tachycardia at 112 Course - Vital Signs Text/Narrative:: Patient presents with complaints of chest pain and palpitations. Patient does have a history of methamphetamine abuse. States she has been taking Suboxone and has recently moved to [place] within the last week and has used methamphetamine and bath salts. She was seen in the emergency department yesterday with complaints of chest pain and palpitations after taking methamphetamine. She was treated with IV fluids and Ativan and then discharged home. Patient states she took a bath salts yesterday afternoon and presents again today with chest pain and palpitations. I have ordered labs including a CBC, CMP, troponin, and urine drug screen including alcohol level. Patient will also receive a chest x-ray and an EKG. We will give her a liter of IV fluids. Last Recorded V/S: Last Vital Signs Temp 97.3 F 10/25/20 13:00 Pulse 134 H 10/25/20 13:00 Resp 16 10/25/20 13:00 BP 136/86 10/25/20 13:00 Pulse Ox 100 10/25/20 13:00 - Orders/Labs/Meds Orders: Active Orders 24 hr Category Date Time Status DRUG SCREEN, URINE [URCHEM] Stat Lab 10/25/20 13:16 Ordered Dextrose 5%-0.9% NaCl [Dextrose 5%-Normal Saline] 1,000 Med 10/25/20 14:45 Active ml IV ASDIRECTED Sodium Chloride 0.9% [Saline Flush] Med 10/25/20 13:16 Active 10 ml FLUSH ASDIRECTED PRN Saline Lock Insert [OM.PC] Stat Oth 10/25/20 13:16 Ordered Medication Orders Dextrose/Sodium Chloride (Dextrose 5%-Normal Saline) 1,000 mls @ 999 mls/hr IV ASDIRECTED MARJORIE Last Admin: 10/25/20 14:43 Dose: 999 mls/hr Documented by: MIRZA Sodium Chloride (Sodium Chloride 0.9% 10 Ml Syringe) 10 ml FLUSH ASDIRECTED PRN PRN Reason: Keep Vein Open Last Admin: 10/25/20 13:50 Dose: 10 ml Documented by: MIRZA Labs: Laboratory Tests 10/25/20 10/25/20 10/25/20 Range/Units 13:45 13:45 13:45 WBC 8.49 (3.98-10.04) K/mm3 RBC 4.63 (3.98-5.22) M/mm3 Hgb 13.9 (11.2-15.7) gm/dl Hct 41.0 (34.1-44.9) % MCV 88.6 (79.4-94.8) fl MCH 30.0 (25.6-32.2) pg MCHC 33.9 (32.2-35.5) g/dl RDW Std Deviation 44.8 (36.4-46.3) fL Plt Count 252 (182-369) K/mm3 MPV 9.6 (9.4-12.3) fl Neut % (Auto) 76.8 H (34.0-71.1) % Lymph % (Auto) 18.3 L (19.3-51.7) % [place] % (Auto) 4.6 L (4.7-12.5) % Eos % (Auto) 0.2 L (0.7-5.8) Baso % (Auto) 0.1 (0.1-1.2) % Neut # (Auto) 6.52 H (1.56-6.13) K/mm3 Lymph # (Auto) 1.55 (1.18-3.74) K/mm3 [place] # (Auto) 0.39 H (0.24-0.36) K/mm3 Eos # (Auto) 0.02 L (0.04-0.36) K/mm3 Baso # (Auto) 0.01 (0.01-0.08) K/mm3 Sodium 138 (136-145) mEq/L Potassium 3.9 (3.5-5.1) mEq/L Chloride 101 (98-107) mEq/L Carbon Dioxide 20 L (21-32) mEq/L Anion Gap 20.9 H (5-15) BUN 15 (7-18) mg/dL Creatinine 0.8 (0.55-1.02) mg/dL Est Cr Clr Drug Dosing TNP Estimated GFR (MDRD) > 60 (>60) mL/min BUN/Creatinine Ratio 18.8 H (14-18) Glucose 58 L (70-99) mg/dL Calcium 8.3 L (8.5-10.1) mg/dL Magnesium 1.9 (1.8-2.4) mg/dL Total Bilirubin 0.8 (0.2-1.0) mg/dL AST 61 H (15-37) U/L ALT 79 H (14-59) U/L Alkaline Phosphatase 85 (46-116) U/L Troponin I < 0.017 (0.00-0.056) ng/mL Total Protein 7.1 (6.4-8.2) g/dl Albumin 4.2 (3.4-5.0) g/dl Globulin 2.9 gm/dL Albumin/Globulin Ratio 1.5 (1-2) Ethyl Alcohol 0.00 (0.00) gm% Meds: Medications Generic Name Dose Route Start Last Admin Trade Name Freq PRN Reason Stop Dose Admin Dextrose/Sodium Chloride 1,000 mls @ 999 mls/hr 10/25/20 14:45 10/25/20 14:43 Dextrose 5%-Normal Saline IV 999 mls/hr ASDIRECTED MARJROIE Administration Sodium Chloride 10 ml 10/25/20 13:16 10/25/20 13:50 Sodium Chloride 0.9% 10 Ml Syringe FLUSH 10 ml ASDIRECTED PRN Administration Keep Vein Open Discontinued Medications Generic Name Dose Route Start Last Admin Trade Name Freq PRN Reason Stop Dose Admin Sodium Chloride 1,000 mls @ 999 mls/hr 10/25/20 13:17 10/25/20 13:50 Normal Saline IV 10/25/20 14:17 999 mls/hr ONETIME ONE Administration - Re-Assessments/Exams Free Text/Narrative Re-Assessment/Exam: 10/25/20 14:40 Hematology reveals a WBC of 8.49, hemoglobin 13.9, hematocrit 41.0, chemistry reveals a sodium of 138, potassium 3.9, carbon dioxide 20, anion gap 20.9, BUN 15, creatinine 0.8, glucose 58, calcium 8.3, magnesium 1.9, AST 61, ALT 79, alk phos 85, troponin less than 0.017, ethyl alcohol 0.00 I have switch the patient's IV fluids from normal state saline to D5 NS as her glucose is low. Patient is still complaining of palpitations her heart rate is down to the low 100s. This is likely all due to ingestion of meth/bath salts and Suboxone. Patient will receive her liter of IV fluids and then we will reevaluate. 10/25/20 14:49 Radiologist impression portable view of the chest: 1. Stable nodule in the left mid chest. 2. Nothing acute is seen on frontal chest x-ray. 10/25/20 15:16 Patient is requesting to leave she has been very rude to nursing staff the entire time she has been here. She states that we are not figuring out her problems and that she has to be somewhere and wants to go. I did visit with the patient and she states that we cannot figure anything out. I discussed with her that the root of her problems is her methamphetamine drug abuse and the fact that she continues to take Suboxone. The patient has been unable to give us a urine sample to do urine drug screen at this time. She is wanting her IVF and wanting to go home. I discussed that this would be AGAINST MEDICAL ADVICE and that she would need to sign the form in order to leave. I also discussed that leaving AGAINST MEDICAL ADVICE could result in . The patient still is requesting to leave. Departure - Departure Time of Disposition: 15:18 Disposition: Against Medical Advice 07 Condition: Fair Clinical Impression: Methamphetamine addiction, Drug abuse Referrals: PCP,None [Primary Care Provider] - Forms: ED Department Discharge Sepsis Event Note (ED) - Evaluation Sepsis Screening Result: No Definite Risk - Focused Exam Vital Signs: Vital Signs Temp Pulse Resp BP Pulse Ox 10/25/20 13:00 97.3 F 134 H 16 136/86 100 - My Orders Last 24 Hours: My Active Orders 10/25/20 13:16 DRUG SCREEN, URINE [URCHEM] Stat Sodium Chloride 0.9% [Saline Flush] 10 ml FLUSH ASDIRECTED PRN Saline Lock Insert [OM.PC] Stat 10/25/20 14:45 Dextrose 5%-0.9% NaCl [Dextrose 5%-Normal Saline] 1,000 ml IV ASDIRECTED - Assessment/Plan Last 24 Hours: My Active Orders 10/25/20 13:16 DRUG SCREEN, URINE [URCHEM] Stat Sodium Chloride 0.9% [Saline Flush] 10 ml FLUSH ASDIRECTED PRN Saline Lock Insert [OM.PC] Stat 10/25/20 14:45 Dextrose 5%-0.9% NaCl [Dextrose 5%-Normal Saline] 1,000 ml IV ASDIRECTED
--- NOTE | 2020-10-25 14:39 | CR ---
Chest: Portable view of the chest was obtained. Comparison: Prior chest x-ray 10/24/20 and 02/05/21. Small nodule is noted within the left midlung. Lungs show no acute parenchymal change. Heart size and mediastinum are normal. No acute osseous abnormality is appreciated. Impression: 1. Stable nodule within the left mid chest. 2. Nothing acute is seen on frontal chest x-ray. Diagnostic code #2
[2020-10-25] MEDS ORDERED: Dextrose 5%-0.9% NaCl 1,000 ML IV SCH (14:45)
== END 2020-10-25 15:20 | disposition left against medical advice (07) ==
LOC: JD.ED 12:52
DX: F15.20 Other stimulant dependence, uncomplicated (principal); Z72.0 Tobacco use
CPT/HCPCS: 36415; 71045; 80053; 80307; 83735; 84484; 85025; 93005; 99285; J7030; J7042; 93010; 99283

== ENCOUNTER 2020-11-05 19:55 | Emergency (ER) | payer SELFPAY ==
[2020-11-05] MEDS ORDERED: Metoprolol Tartrate 5 MG/5 ML SDV IVPUSH ONE (20:31)
--- NOTE | 2020-11-05 20:38 | EDM.PDOC ---
ED HPI GENERAL MEDICAL PROBLEM - General Chief Complaint: Cardiovascular Problem Stated Complaint: [facility] Time Seen by Provider: 11/05/20 20:14 Source of Information: Reports: Patient History Limitations: Reports: No Limitations - History of Present Illness INITIAL COMMENTS - FREE TEXT/NARRATIVE: Ms. Duggan is a pleasant 30-year-old woman who now presents to the ED complaining of rapid palpitations after smoking methamphetamine earlier today. She states that she has had tachycardia after smoking methamphetamine in the past, but that it does not usually last as long. She denies any other symptoms, such as chest pain or dyspnea. Here in the ED, the patient's initial BP is found to be within normal is at 128/92, with tachycardia 133 bpm. She is afebrile, saturating 94% on room air. She appears to be mildly anxious, but comfortable, in no acute distress. Prior to this evening, the patient denies having a recent fever, chills, sore throat, ear pain, nasal or sinus congestion, cough, dyspnea, chest pain, palpitations, nausea, vomiting, constipation, diarrhea, abdominal pain, urinary symptoms, recent weight gain or weight loss, recent bloody bowel movements or black bowel movements, recent joint aches, headaches, or rashes. The patient does not have a PCP. She is prescribed Suboxone from a clinic in [place]. - Related Data Allergies Allergy/AdvReac Type Severity Reaction Status Date / Time No Known Allergies Allergy Verified 11/05/20 20:15 Home Meds: Home Meds Buprenorphine HCl/Naloxone HCl [Suboxone 4 mg-1 mg Sl Film] 1 each SL TID 09/27/18 [History] Potassium Chloride 20 meq PO DAILY #30 tablet.er 10/22/20 [Rx] Past Medical History Psychiatric History: Reports: Addiction (methamphetamine, opiates), Depression (untreated) - Past Surgical History HEENT Surgical History: Reports: Oral Surgery (dental extractions) Social & Family History - Tobacco Use Tobacco Use Status *Q: Current Every Day Tobacco User Years of Tobacco use: 12 Packs/Tins Daily: 0.3 Packs/Tins Daily Comment: Down from 06/05 ppd Tobacco Use Comment: Started smoking at 18 yrs old - Caffeine Use Caffeine Use: Reports: None - Alcohol Use Alcohol Use History: Yes Alcohol Use Frequency: Socially - Recreational Drug Use Recreational Drug Use: Yes Drug Use in Last 12 Months: Yes Recreational Drug Type: Reports: Heroin, Marijuana/Hashish (last), Methamphetamine, Other (see below) (Rx opioids. 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 ED EXAM, GENERAL - Physical Exam Exam: See Below Exam Limited By: No Limitations General Appearance: Alert, No Apparent Distress, Thin Eye Exam: Bilateral Eye: EOMI, Normal Inspection Ears: Normal External Exam, Hearing Grossly Normal Nose: Normal Inspection Throat/Mouth: Normal Inspection, Normal Lips, Normal Voice, No Airway Compromise Head: Atraumatic, Normocephalic Neck: Normal Inspection, Full Range of Motion Respiratory/Chest: No Respiratory Distress, Lungs Clear, Normal Breath Sounds, No Accessory Muscle Use Cardiovascular: Normal Peripheral Pulses, No Edema, No Gallop, No JVD, No Murmur, No Rub, Tachycardia (regular, bounding) Peripheral Pulses: 3+: Radial (L), Radial (R) GI/Abdominal: Normal Bowel Sounds, Soft, Non-Tender, No Organomegaly, No Distention, No Abnormal Bruit, No Mass Back Exam: Normal Inspection, Full Range of Motion, NT Extremities: Normal Inspection, Normal Range of Motion, No Pedal Edema, Normal Capillary Refill Neurological: Alert, Oriented, Normal Cognition, No Motor/Sensory Deficits Psychiatric: Normal Affect Skin Exam: Warm, Dry, Intact, Normal Color, No Rash #1 Interpretation EKG Date: 11/05/20 Time: 20:09 Rhythm: Other (Sinus tachycardia) Rate (Beats/Min): 131 [place]: Normal P-Wave: Present QRS: Normal ST-T: Normal QT: Normal Comparison: No Change (10/25/2020) Course - Vital Signs Last Recorded V/S: Last Vital Signs Temp 36.1 C 11/05/20 20:13 Pulse 100 11/05/20 22:00 Resp 18 11/05/20 22:00 BP 109/82 11/05/20 22:00 Pulse Ox 99 11/05/20 22:00 - Orders/Labs/Meds Labs: Laboratory Tests 11/05/20 11/05/20 Range/Units 20:44 20:44 WBC 5.42 (3.98-10.04) K/mm3 RBC 4.68 (3.98-5.22) M/mm3 Hgb 13.9 (11.2-15.7) gm/dl Hct 41.7 (34.1-44.9) % MCV 89.1 (79.4-94.8) fl MCH 29.7 (25.6-32.2) pg MCHC 33.3 (32.2-35.5) g/dl RDW Std Deviation 45.1 (36.4-46.3) fL Plt Count 239 (182-369) K/mm3 MPV 10.1 (9.4-12.3) fl Neutrophils % (Manual) 70 H (40-60) % Band Neutrophils % 2 (0-10) % Lymphocytes % (Manual) 21 (20-40) % Atypical Lymphs % 0 % Monocytes % (Manual) 6 (2-10) % Eosinophils % (Manual) 0 L (0.7-5.8) % Basophils % (Manual) 1 (0.1-1.2) Platelet Estimate Adequate RBC Morph Comment Normal Sodium 140 (136-145) mEq/L Potassium 3.3 L (3.5-5.1) mEq/L Chloride 103 (98-107) mEq/L Carbon Dioxide 25 (21-32) mEq/L Anion Gap 15.3 H (5-15) BUN 9 (7-18) mg/dL Creatinine 0.8 (0.55-1.02) mg/dL Est Cr Clr Drug Dosing 71.42 mL/min Estimated GFR (MDRD) > 60 (>60) mL/min BUN/Creatinine Ratio 11.3 L (14-18) Glucose 137 H (70-99) mg/dL Calcium 8.9 (8.5-10.1) mg/dL Magnesium 2.0 (1.8-2.4) mg/dL Total Bilirubin 0.4 (0.2-1.0) mg/dL AST 22 (15-37) U/L ALT 43 (14-59) U/L Alkaline Phosphatase 76 (46-116) U/L Troponin I < 0.017 (0.00-0.056) ng/mL Total Protein 7.5 (6.4-8.2) g/dl Albumin 4.4 (3.4-5.0) g/dl Globulin 3.1 gm/dL Albumin/Globulin Ratio 1.4 (1-2) Meds: Medications Discontinued Medications Generic Name Dose Route Start Last Admin Trade Name Danica PRN Reason Stop Dose Admin Sodium Chloride 1,000 mls @ 150 mls/hr 11/05/20 20:45 11/05/20 20:40 Normal Saline IV 150 mls/hr ASDIRECTED MARJORIE Administration Metoprolol Tartrate 5 mg 11/05/20 20:31 11/05/20 20:40 Metoprolol Tartrate 5 Mg/5 Ml Sdv IVPUSH 11/05/20 20:32 5 mg ONETIME ONE Administration - Re-Assessments/Exams Free Text/Narrative Re-Assessment/Exam: 11/05/20 20:33 As above, the patient is here for rapid palpitations due to tachycardia after smoking methamphetamine earlier today. She denies having any other symptoms, such as chest pain or dyspnea. An ECG, obtained at triage, confirms a sinus tachycardia at 131 bpm, with no ischemic changes. I have ordered some blood tests to make sure that there are no significant electrolyte abnormalities that need to be corrected. Methamphetamine-induced hypertension and tachycardia are best treated with labetalol, however, methamphetamine-induced tachycardia without hypertension is best treated with metoprolol, therefore I have ordered Lopressor 5 mg IVP, along with some IV fluid. Because she does not appear to be mentally agitated at this time, I do not see need for lorazepam, Haldol, or diphenhydramine. 11/05/20 21:55 The patient's CBC is unremarkable. Her CMP is remarkable for mild hypokalemia of 3.3, with an anion gap slightly elevated at 15.3, but with a bicarbonate normal at 25, and mild hyperglycemia of 137, with the remainder of her CMP being unremarkable. Her magnesium level is within normal limits at 2.0. Her troponin is undetectably low. Following 5 mg of IM Lopressor, the patient's heart rate is 98. 11/05/20 21:57 Test results discussed with the patient. She states that she feels well. I will discharge her home with the recommendation that she follow-up at [facility]. She said that she would. Departure - Departure Time of Disposition: 21:58 Disposition: Home, Self-Care 01 Condition: Good Clinical Impression: Methamphetamine abuse - Discharge Information *PRESCRIPTION DRUG MONITORING PROGRAM REVIEWED*: Not Applicable *COPY OF PRESCRIPTION DRUG MONITORING REPORT IN PATIENT CYNDI: Not Applicable Instructions: Amphetamines Use Disorder Referrals: PCP,None [Primary Care Provider] - Forms: ED Department Discharge Additional Instructions: You were seen in the emergency room for rapid palpitations after smoking methamphetamine today. Work-up in the ER included several blood tests and an ECG. The ECG confirmed sinus tachycardia of 131 bpm. Your blood work was unremarkable. Your heart rate was treated with IV metoprolol, which succeeded in bringing your heart rate down under 100. We strongly recommend that you abstain from smoking methamphetamine, or using any other drugs, and follow-up at [facility]: [address] [phone] If any other problems, please do not hesitate to return to the ER. Sepsis Event Note (ED) - Evaluation Sepsis Screening Result: No Definite Risk - Focused Exam Vital Signs: Vital Signs Temp Pulse Pulse Resp BP BP Pulse Ox 11/05/20 22:00 100 18 109/82 99 11/05/20 20:40 132 H 125/85 11/05/20 20:13 36.1 C 133 H 12 128/92 H 94 L
[2020-11-05] MEDS ORDERED: Sodium Chloride 0.9% 1,000 ML IV SCH (20:45)
[2020-11-05 22:12] VITALS: BP 109/82; PULSE 100
== END 2020-11-05 22:12 | disposition home or self-care (01) ==
LOC: JD.ED 19:55
DX: F15.10 Other stimulant abuse, uncomplicated (principal); R00.0 Tachycardia, unspecified; R00.2 Palpitations; Z72.0 Tobacco use
CPT/HCPCS: 36415; 80053; 83735; 84484; 85007; 85027; 93005; 96374; 99285; J3490; J7030; 93010; 99283

== ENCOUNTER 2020-11-22 09:37 | Emergency (ER) | payer SELFPAY ==
[2020-11-22 09:49] VITALS: BP 128/103; PULSE 119
--- NOTE | 2020-11-22 10:06 | EDM.PDOC ---
ED HPI GENERAL MEDICAL PROBLEM - General Chief Complaint: General Stated Complaint: INGESTED ANTIFREEZE Time Seen by Provider: 11/22/20 09:52 Source of Information: Reports: Patient History Limitations: Reports: No Limitations - History of Present Illness INITIAL COMMENTS - FREE TEXT/NARRATIVE: 30-year-old female presents to the ED after accidentally ingesting some ethylene glycol this morning. She reports it was green and any Styrofoam foam cup in the garage this morning. She states they had been drinking Gatorade yesterday and she thought it was the same. She drank [employer] took a mouthful of this and recognize that it tasted wrong and spit it out. She did ingest some of that however she feels very little of it. She drank this about 35 to 40 minutes before coming to the ED. She feels otherwise well with no nausea or vomiting. She is a little agitated from using methamphetamines last night which they smoked. She therefore feels anxious at this time. She denies any possibility of . Onset: Today, Sudden Onset Date: 11/22/20 Onset Time: 09:20 Duration: Minutes: Location: Reports: Other (Feels a little numbness and tingling in her mouth with the taste of ethylene glycol in her mouth. Otherwise feels well.) Quality: Reports: Other (Accidental ingestion of antifreeze) Severity: Mild Improves with: Reports: None Worsens with: Reports: None Context: Reports: Other ( Nonpurposeful or accidental ingestion of some antifreeze.). Denies: Activity, Exercise, Lifting, Sick Contact, Trauma Associated Symptoms: Reports: No Other Symptoms, Loss of Appetite, Other (Feels anxious.). Denies: Confusion, Chest Pain, Cough, cough w sputum, Diaphoresis, Fever/Chills, Headaches, Malaise, Nausea/Vomiting, Rash, Seizure, Shortness of Breath, Syncope Treatments CAUSTICISER: Reports: Other (see below) (None.) - Related Data Allergies Allergy/AdvReac Type Severity Reaction Status Date / Time No Known Allergies Allergy Verified 11/22/20 09:49 Home Meds: Home Meds Buprenorphine HCl/Naloxone HCl [Suboxone 4 mg-1 mg Sl Film] 1 each SL DAILY 09/27/18 [History] Gabapentin [Neurontin] 100 mg PO TID PRN 11/22/20 [History] Past Medical History - Past Health History Medical/Surgical History: Denies Medical/Surgical History Cardiovascular History: Reports: None Respiratory History: Reports: None Gastrointestinal History: Reports: None Genitourinary History: Reports: None 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 History: Reports: Other (See Below) Other MOTORCYCLE BUILDER History: vaginitis Musculoskeletal History: Reports: None Neurological History: Reports: None Psychiatric History: Reports: Addiction (Is on Suboxone at this time.), Depression Immunologic History: Reports: None Oncologic (Cancer) History: Reports: None Dermatologic History: Reports: None - Infectious Disease History Infectious Disease History: Reports: None - Past Surgical History HEENT Surgical History: Reports: Oral Surgery Other HEENT Surgeries/Procedures: wisdom teeth removal Social & Family History - Family History Family Medical History: No Pertinent Family History - Tobacco Use Tobacco Use Status *Q: Current Every Day Tobacco User Years of Tobacco use: 12 Packs/Tins Daily: 0.5 - Caffeine Use Caffeine Use: Reports: None - Recreational Drug Use Recreational Drug Use: Yes - Living Situation & Occupation Living situation: Reports: Single, with Family Occupation: Employed ([employer]) ED ROS GENERAL - Review of Systems Review Of Systems: See Below Constitutional: Reports: Decreased Appetite, Weight Loss. Denies: Fever, Chills, Malaise, Weakness, Fatigue HEENT: Reports: Other (Some numbness and tingling in her mouth at present with the taste of antifreeze.) Respiratory: Reports: No Symptoms Cardiovascular: Reports: No Symptoms Endocrine: Reports: No Symptoms GI/Abdominal: Reports: Constipation, Decreased Appetite : Reports: No Symptoms Musculoskeletal: Reports: No Symptoms Skin: Reports: No Symptoms Neurological: Reports: No Symptoms Psychiatric: Reports: Anxiety Hematologic/Lymphatic: Reports: No Symptoms Immunologic: Reports: No Symptoms ED EXAM, GENERAL - Physical Exam Exam: See Below Exam Limited By: No Limitations General Appearance: Alert, WD/WN, Anxious, Mild Distress, Other (Temperature is 36.4 degrees. Heart rate 120 and sinus tachycardia. Respiratory 16 with O2 sats of 95%. BP slightly elevated 128 103. It is subsequently come down to 121/92. Heart rate is down to 111.) Eye Exam: Bilateral Eye: Normal Inspection (No scleral icterus or blepharal pallor.), PERRL Throat/Mouth: Other Head: Atraumatic, Normocephalic, Other Neck: Normal Inspection, Supple (No outward signs of any head or facial trauma.), Non-Tender, Full Range of Motion. No: Carotid Bruit, Lymphadenopathy (L), Lymphadenopathy (R) Respiratory/Chest: No Respiratory Distress, Lungs Clear, Normal Breath Sounds, No Accessory Muscle Use Cardiovascular: Normal Peripheral Pulses, No Edema, No Gallop ( time of exam 120/min.), No Murmur, No Rub, Tachycardia (Mildly tachycardic at) Peripheral Pulses: 3+: Carotid (L), Carotid (R), Posterior Tibial (L), Posterior Tibial (R), Dorsalis Pedis (L), Dorsalis Pedis (R) GI/Abdominal: Normal Bowel Sounds, Soft, Non-Tender, No Organomegaly, No Abnormal Bruit, No Mass, Pelvis Stable, Other (Scaphoid abdomen without scars.) Back Exam: Normal Inspection, Full Range of Motion. No: CVA Tenderness (L), CVA Tenderness (R) Extremities: Normal Inspection, Normal Range of Motion, Non-Tender, No Pedal Edema Neurological: Alert, Oriented, CN II-XII Intact, Normal Cognition Psychiatric: Anxious Skin Exam: Warm, Dry, Intact, Normal Color, No Rash Course - Vital Signs Last Recorded V/S: Last Vital Signs Temp 36.4 C 11/22/20 09:46 Pulse 119 H 11/22/20 09:46 Resp 16 11/22/20 09:46 BP 128/103 H 11/22/20 09:46 Pulse Ox 95 11/22/20 09:46 - Orders/Labs/Meds Labs: Laboratory Tests 11/22/20 11/22/20 11/22/20 Range/Units 10:20 11:30 11:30 WBC 5.12 (3.98-10.04) K/mm3 RBC 4.34 (3.98-5.22) M/mm3 Hgb 13.1 (11.2-15.7) gm/dl Hct 39.1 (34.1-44.9) % MCV 90.1 (79.4-94.8) fl MCH 30.2 (25.6-32.2) pg MCHC 33.5 (32.2-35.5) g/dl RDW Std Deviation 42.9 (36.4-46.3) fL Plt Count 186 (182-369) K/mm3 MPV 10.2 (9.4-12.3) fl Neut % (Auto) 61.0 (34.0-71.1) % Lymph % (Auto) 28.7 (19.3-51.7) % [place] % (Auto) 7.2 (4.7-12.5) % Eos % (Auto) 2.7 (0.7-5.8) Baso % (Auto) 0.2 (0.1-1.2) % Neut # (Auto) 3.12 (1.56-6.13) K/mm3 Lymph # (Auto) 1.47 (1.18-3.74) K/mm3 [place] # (Auto) 0.37 H (0.24-0.36) K/mm3 Eos # (Auto) 0.14 (0.04-0.36) K/mm3 Baso # (Auto) 0.01 (0.01-0.08) K/mm3 Puncture Site Lt radial ABG pH 7.38 (7.35-7.45) ABG pCO2 44.4 (35.0-45.0) mmHg ABG pO2 84.0 (80.0-100.0) mmHg ABG HCO3 25.4 (22.0-26.0) meq/L ABG O2 Saturation 96.1 (96.0-97.0) % ABG Base Excess 0.5 (-2-2.0) A-a Gradient 11 mmHg O2 Delivery Device Room air Oxygen Flow Rate 0.0 FiO2 21.00 (21.00-100.00) % Sodium 137 (136-145) mEq/L Potassium 3.3 L (3.5-5.1) mEq/L Chloride 101 (98-107) mEq/L Carbon Dioxide 26 (21-32) mEq/L Anion Gap 13.3 (5-15) BUN 8 (7-18) mg/dL Creatinine 0.9 (0.55-1.02) mg/dL Est Cr Clr Drug Dosing 57.07 mL/min Estimated GFR (MDRD) > 60 (>60) mL/min BUN/Creatinine Ratio 8.9 L (14-18) Glucose 340 H (70-99) mg/dL Hemoglobin A1c ( - 5.6) % Calcium 7.7 L (8.5-10.1) mg/dL Total Bilirubin 0.4 (0.2-1.0) mg/dL AST 12 L (15-37) U/L ALT 23 (14-59) U/L Alkaline Phosphatase 59 (46-116) U/L Total Protein 6.5 (6.4-8.2) g/dl Albumin 3.6 (3.4-5.0) g/dl Globulin 2.9 gm/dL Albumin/Globulin Ratio 1.2 (1-2) HCG, Qual (NEGATIVE) Ethyl Alcohol 0.00 (0.00) gm% 11/22/20 11/22/20 Range/Units 11:30 11:45 WBC (3.98-10.04) K/mm3 RBC (3.98-5.22) M/mm3 Hgb (11.2-15.7) gm/dl Hct (34.1-44.9) % MCV (79.4-94.8) fl MCH (25.6-32.2) pg MCHC (32.2-35.5) g/dl RDW Std Deviation (36.4-46.3) fL Plt Count (182-369) K/mm3 MPV (9.4-12.3) fl Neut % (Auto) (34.0-71.1) % Lymph % (Auto) (19.3-51.7) % [place] % (Auto) (4.7-12.5) % Eos % (Auto) (0.7-5.8) Baso % (Auto) (0.1-1.2) % Neut # (Auto) (1.56-6.13) K/mm3 Lymph # (Auto) (1.18-3.74) K/mm3 [place] # (Auto) (0.24-0.36) K/mm3 Eos # (Auto) (0.04-0.36) K/mm3 Baso # (Auto) (0.01-0.08) K/mm3 Puncture Site ABG pH (7.35-7.45) ABG pCO2 (35.0-45.0) mmHg ABG pO2 (80.0-100.0) mmHg ABG HCO3 (22.0-26.0) meq/L ABG O2 Saturation (96.0-97.0) % ABG Base Excess (-2-2.0) A-a Gradient mmHg O2 Delivery Device Oxygen Flow Rate FiO2 (21.00-100.00) % Sodium (136-145) mEq/L Potassium (3.5-5.1) mEq/L Chloride (98-107) mEq/L Carbon Dioxide (21-32) mEq/L Anion Gap (5-15) BUN (7-18) mg/dL Creatinine (0.55-1.02) mg/dL Est Cr Clr Drug Dosing mL/min Estimated GFR (MDRD) (>60) mL/min BUN/Creatinine Ratio (14-18) Glucose (70-99) mg/dL Hemoglobin A1c 5.3 ( - 5.6) % Calcium (8.5-10.1) mg/dL Total Bilirubin (0.2-1.0) mg/dL AST (15-37) U/L ALT (14-59) U/L Alkaline Phosphatase (46-116) U/L Total Protein (6.4-8.2) g/dl Albumin (3.4-5.0) g/dl Globulin gm/dL Albumin/Globulin Ratio (1-2) HCG, Qual Negative (NEGATIVE) Ethyl Alcohol (0.00) gm% Meds: Medications Discontinued Medications Generic Name Dose Route Start Last Admin Trade Name Freq PRN Reason Stop Dose Admin Dextrose/Sodium Chloride 1,000 mls @ 999 mls/hr 11/22/20 10:15 11/22/20 10:34 Dextrose 5%-Normal Saline IV 999 mls/hr ASDIRECTED MARJORIE Administration - Radiology Interpretation Free Text/Narrative:: 30-year-old female presents to the ED admitting that she has been using methamphetamines last evening and early this morning. She states she did eat early this morning around 1:00. This morning proximally 40 minutes before coming to the ED she accidentally ingested some ethylene glycol that was in a Styrofoam cup and was green in color. He had been drinking Gatorade yesterday and she thought it was Gatorade. She recognized right away the abnormal taste and spit most of the ethylene glycol out but did swallow some of it. History suggest she took in a minimal amount and is unlikely to have any toxicity from this. This was completely accidental. She has a history of addiction to methamphetamines. She is also on Suboxone at this time. She is anxious and slightly agitated at the time she was seen in the ED. Heart rate was sinus tachycardia at 120/min. Lungs were clear. Benign abdominal exam. Plan ABGs to make sure she does not have a metabolic acidosis. CBC and CMP and beta hCG to be done. Urine drug screen. She appears volume depleted. IV will be D5 normal saline at open. - Re-Assessments/Exams Free Text/Narrative Re-Assessment/Exam: 11/22/20 10:50: ABGs revealed a pH of 7.38. PCO2 44.4. PO2 of 84.0 with a bicarb of 25.4. O2 sats 96.1% on room air 11/22/20 11:36 I was awaiting the results of her lab tests and then identified that they have not yet been drawn. Patient is fairly agitated after completing a liter of IV fluids. Since her ABGs did not reveal any significant evidence of a metabolic acidosis I suspect she is ingested only a very small quantity of ethylene glycol. Plan will be to discharge her home at this time. She is very antsy and fidgety likely due to methamphetamine use. 11/22/20 12:40 Labs reveal a normal white count at 5.12 with a differential of 61% neutrophils on the auto differential. Hemoglobin is 13.1 with hematocrit of 39.1. Platelet count 186,000. Chemistry shows a sodium of 137 potassium slightly low at 3.3 from not eating. Chloride 101 with a bicarb of 26. Anion gap is 13.3 with a BUN of 8 and a creatinine of 0.9. GFR is greater than 60. Glucose is elevated at 340. Patient is not known to be diabetic. Calcium is 7.7 with a total bilirubin of 0.4 AST is 12. Beta hCG was negative blood alcohol was 0.00. Patient never did provide a urine specimen for analysis or drug screen. 11/22/20 13:14 glycosylated protein returned at 5.3 indicating she is not a diabetic. Unclear why her blood sugars are running high today. Departure - Departure Time of Disposition: 11:37 Disposition: Home, Self-Care 01 Condition: Fair Clinical Impression: Ethylene glycol poisoning Qualifiers: Encounter type: initial encounter Injury intent: accidental or unintentional Qualified Code(s): T52.8X1A - Toxic effect of other organic solvents, accidental (unintentional), initial encounter - Discharge Information *PRESCRIPTION DRUG MONITORING PROGRAM REVIEWED*: Not Applicable *COPY OF PRESCRIPTION DRUG MONITORING REPORT IN PATIENT CYNDI: Not Applicable Referrals: PCP,None [Primary Care Provider] - Forms: ED Department Discharge Additional Instructions: Evaluation in the emergency room today in regards to accidental ingestion of a small quantity of ethylene glycol or antifreeze. The initial blood gas test revealed no evidence of metabolic acidosis or significant ingestion of ethylene glycol. He received a liter of IV fluids to provide rehydration. It appears that you ingested only a small quantity of ethylene glycol and it will not cause any serious side effect except transient numbness tingling of your lips mouth and upset stomach. May eat and drink as normal. Labs were drawn as they for some reason did not get drawn when you entered the ED. I will call you if any of the results are abnormal. If you do not hear from me that means they were all normal. Sepsis Event Note (ED) - Evaluation Sepsis Screening Result: No Definite Risk - Focused Exam Vital Signs: Vital Signs Temp Pulse Resp BP Pulse Ox 11/22/20 09:46 36.4 C 119 H 16 128/103 H 95
[2020-11-22] MEDS ORDERED: Dextrose 5%-0.9% NaCl 1,000 ML IV SCH (10:15)
[2020-11-22 12:57] LABS: HEMOGLOBIN A1C 5.3 %
== END 2020-11-22 12:00 | disposition home or self-care (01) ==
LOC: JD.ED 09:37
DX: T52.8X1A Toxic effect of other organic solvents, accidental (unintentional), initial encounter (principal); T52.3X1A Toxic effect of glycols, accidental (unintentional), initial encounter; Z72.0 Tobacco use
CPT/HCPCS: 36415; 36600; 80053; 80307; 82803; 83036; 84703; 85025; 99284; J7042; 99283